=== PATIENT | male | born 2000 | race Caucasian/White ===

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

== ENCOUNTER 2024-12-15 12:09 | Emergency (ER) | payer BC ==
[2024-12-15 12:19] VITALS: BP 139/88; PULSE 89
[2024-12-15] MEDS: Ketorolac 30 MG/ML SDV IM ONE (12:51)
== END 2024-12-15 13:25 | disposition home or self-care (01) ==
LOC: JP.ED 12:09
DX: L55.0 Sunburn of first degree (principal); Z79.899 Other long term (current) drug therapy; Z86.16 Personal history of COVID-19
CPT/HCPCS: 96372; 99282; J1885